=== PATIENT | male | born 1945 | race Caucasian/White ===

== ENCOUNTER 2017-08-12 12:01 | Day surgery (SDC) | payer MEDICARE ==
[~2017-08-12] VITALS: Ht 190.5 cm; Wt 168.5 kg
[~2017-08-12 12:01] MED LIST: ONDANSETRON 2MG/ML, 2ML ONE; PROPOFOL 10 MG/ML, 20ML ONE; SUCCINYLCHOLINE 20 MG/ML, 10ML ONE
[2017-08-12] MEDS ORDERED: LACTATED RINGERS 1,000 ML IV SCH (12:36)
[2017-08-12] MEDS ORDERED: OXYB10TA PO (12:40)
[2017-08-12] MEDS ORDERED: LEVO175T2 PO (12:40)
[2017-08-12] MEDS ORDERED: OMEP-110 PO (12:40)
[2017-08-12] MEDS ORDERED: SIMV40TA3 PO (12:40)
[2017-08-12 12:49] VITALS: BP 145/83
[2017-08-12 13:28] LABS: BASOPHILS # (AUTO) 0.04 x10^3/uL (0-0.1); BASOPHILS % (AUTO) 0 % (0-1); EOSINOPHILS % (AUTO) 2 % (1-7); LYMPHOCYTES # (AUTO) 1.66 x10^3/uL (1-3.4); LYMPHOCYTES % (AUTO) 15 % (22-44); MD NO; MEAN CORPUSCULAR HGB CONC 33.9 g/dL (33.2-36.2); MEAN CORPUSCULAR VOLUME 94.3 fL (81-97); MEAN PLATELET VOLUME 7.8 fL (7.4-10.4); MONOCYTES # (AUTO) 1.15 x10^3/uL (0.2-0.8); MONOCYTES % (AUTO) 11 % (2-9); NEUTROPHILS # (AUTO) 7.73 x10^3/uL (1.8-6.8); NEUTROPHILS % (AUTO) 72 % (42-75); PLATELET COUNT 265 x10^3/uL (130-400); RED BLOOD COUNT 4.84 x10^6/uL (4.38-5.82); RED CELL DISTRIBUTION WIDTH 13.8 % (9.4-14.8)
[2017-08-12] MEDS ORDERED: MIDAZOLAM 1 MG/ML, 2ML IV PRN (16:00)
[2017-08-12] MEDS ORDERED: ONDANSETRON 2MG/ML, 2ML IVPush PRN (16:00)
[2017-08-12] MEDS ORDERED: PROMETHAZINE 25 MG/ML, 1ML IV PRN (16:00)
[2017-08-12] MEDS ORDERED: LABETALOL 5MG/ML, 20ML IV PRN (16:00)
[2017-08-12] MEDS ORDERED: FENTANYL PF 100 MCG/2ML IV PRN (16:00)
[2017-08-12] MEDS ORDERED: ACETAMINOPHEN 325 MG TABLET PO PRN (16:00)
[2017-08-12] MEDS ORDERED: OXYcodone 5 MG/5 ML ORAL.SOL UDC PO PRN (16:00)
[2017-08-12] MEDS ORDERED: PROMETHAZINE 12.5 MG SUPP PR PRN (16:00)
[2017-08-12] MEDS ORDERED: EPHEDRINE 50 MG/ML, 1ML IVPush PRN (16:00)
== END 2017-08-12 17:45 ==
LOC: OUT 12:01 → EDSTATUS 14:00 → OUT 17:45
PROVIDERS: ATTEND Nurse Practitioner
DX: M51.16 Intervertebral disc disorders with radiculopathy, lumbar region (principal); M48.061 Spinal stenosis, lumbar region without neurogenic claudication; M54.2 Cervicalgia; E66.01 Morbid (severe) obesity due to excess calories; Z68.42 Body mass index [BMI] 45.0-49.9, adult
CPT/HCPCS: 36415; 72141; 72148; 85025; 93005; J7120; J2405; J2704; J0330